=== PATIENT | female | born 1965 | race Caucasian/White ===

== ENCOUNTER → 2016-06-27 | Day surgery (SDC) | payer MEDICAID ==
[~2016-06-27] MED LIST: Lactated Ringers 1,000 ML IV SCH; Midazolam 1 MG/ML 2 ML SDV IV ONE; Midazolam 1 MG/ML 2 ML SDV ONE; fentaNYL 100 MCG/2 ML SDV ONE
[2016-06-27 13:49] VITALS: BP 112/58
--- NOTE | 2016-06-27 20:13 | OR ---
DATE OF OPERATION: 06/27/2016 PREOPERATIVE DIAGNOSIS: RIGHT UPPER QUADRANT PAIN. POSTOPERATIVE DIAGNOSIS: RIGHT UPPER QUADRANT PAIN. SURGEON: Reza Cantor MD PROCEDURE: ESOPHAGOGASTRODUODENOSCOPY WITH BIOPSIES X1, MARSHA. ANESTHESIA: Conscious sedation. COMPLICATIONS: None. SPECIMEN: 1. Duodenal biopsy x2. 2. MARSHA. FINDINGS: 1. Full-length EGD. 2. Duodenitis, duodenal bulb. 3. Small hiatal hernia with spontaneous GERD. RECOMMENDATIONS: Medical follow up. The patient will be placed on appropriate therapy. INDICATIONS: The patient has been having some persistent right upper quadrant pain. She does have some chronic reflux as well. We elected to proceed with EGD. DESCRIPTION OF PROCEDURE: The patient was prepped and draped, placed in left lateral decubitus position. A lubricated Olympus gastroscope was inserted, advanced the cricopharyngeus area, with patient swallow, intubated in the esophagus. Esophageal lining was benign in its entire course. The Z-line was crisp and sharp at 37.5 to 38 cm. There was a mild sized hiatal hernia present with significant spontaneous reflux but no distal esophagitis, stricturing, ulceration, or Helm's changes. The scope was advanced into the stomach through the pylorus and into the third portion of duodenum. The second and third portion of duodenum looked fine. The duodenal bulb itself had mild to moderate diffuse duodenitis. Two biopsies were taken. The scope was brought back into the stomach and retroflexed. The patient has a very redundant stomach, was hard to keep inflated due to amount of air she was losing orally, and we did not get a great look at the upper fundus and cardia, but no gross abnormalities were seen. Upon straightening, the rest of the fundus and antrum showed no signs of any obvious peptic ulcer disease. A CLOtest was obtained. Air was suctioned. Scope was removed without complication. KISHA/ABEBE /[id number]
== END ==
LOC: CC.SDS 11:36
PROVIDERS: ATTEND Family Medicine
DX: K29.80 Duodenitis without bleeding (principal); K44.9 Diaphragmatic hernia without obstruction or gangrene; K21.9 Gastro-esophageal reflux disease without esophagitis; E66.9 Obesity, unspecified; Z88.8 Allergy status to other drugs, medicaments and biological substances; Z79.899 Other long term (current) drug therapy; Z98.51 Tubal ligation status; Z96.649 Presence of unspecified artificial hip joint
CPT/HCPCS: 43239; 87081; J2250; J3010; J7120

== ENCOUNTER → 2016-09-10 | Day surgery (SDC) | payer MEDICAID ==
[~2016-09-10] MED LIST changes: +Acetaminophen/HYDROcodone 325-5 MG Tab PO PRN; +Bupivacaine 0.25%/EPINEPHrine 1:200,000 10 ML SDV ONE; -Lactated Ringers 1,000 ML IV SCH; +Lidocaine 2% 20 ML MDV ONE; -Midazolam 1 MG/ML 2 ML SDV IV ONE; -Midazolam 1 MG/ML 2 ML SDV ONE; +Morphine 4 MG/ML Syringe IVPUSH PRN; +Sodium Chloride 0.9% 100 ML ONE; +ceFAZolin 1 GM Vial IVPUSH ONE; +ceFAZolin 1 GM Vial ONE; +fentaNYL 100 MCG/2 ML SDV IVPUSH ONE; -fentaNYL 100 MCG/2 ML SDV ONE
[2016-09-10] MEDS: Lactated Ringers 1,000 ML IV SCH ×2 (09:35→13:19)
[2016-09-10 16:52] VITALS: BP 117/82
--- NOTE | 2016-09-11 08:11 | OR ---
DATE OF OPERATION: 09/10/2016 PREOPERATIVE DIAGNOSIS: CHRONIC CHOLECYSTITIS. POSTOPERATIVE DIAGNOSIS: CHRONIC CHOLECYSTITIS. SURGEON: Vamsi Burt MD PROCEDURE: LAPAROSCOPIC CHOLECYSTECTOMY. ANESTHESIA: General. DESCRIPTION OF PROCEDURE: After the patient was anesthetized satisfactorily, the patient's abdomen was prepped with iodoform. The patient was given sterile drapes. Small skin incision was made in the midline. It was carried down through the skin, subcutaneous tissue, down through deep fascia. Deep fascia and peritoneum were opened. An 11 mm blunt trocar was introduced. CO2 gas was insufflated. Under direct camera vision, another 11 mm trocar was introduced into the subxiphoid space and a 5 mm in the right upper quadrant. The patient's gallbladder was chronically inflamed. It was held in position with help of a grasper. Dissection was done and cystic duct, cystic artery were both exposed. Junction of the cystic duct with common bile duct and gallbladder was exposed. Both cystic duct and cystic arteries were clipped and divided then gallbladder was taken off its bed with the help of hook cautery and removed from the peritoneal cavity using Endopouch. Irrigation was done. Hemostasis was satisfactory. Various CO2 gas was desufflated out. Various ports were removed. The fascia was closed with #0 Ethibond running sutures. Skin was closed with 4- 0 Vicryl subcuticular sutures. The patient was given sterile dressings. She tolerated the procedure well and left the operating room in satisfactory condition. MELANIA/ABEBE /[id number]
== END ==
LOC: CC.SDS 08:10
PROVIDERS: ATTEND Surgery
DX: K81.1 Chronic cholecystitis (principal); F41.9 Anxiety disorder, unspecified; K21.9 Gastro-esophageal reflux disease without esophagitis; E66.9 Obesity, unspecified; Z88.8 Allergy status to other drugs, medicaments and biological substances; Z98.890 Other specified postprocedural states; Z98.51 Tubal ligation status; Z79.899 Other long term (current) drug therapy; Z96.649 Presence of unspecified artificial hip joint; Z72.0 Tobacco use; F17.210 Nicotine dependence, cigarettes, uncomplicated; Z77.22 Contact with and (suspected) exposure to environmental tobacco smoke (acute) (chronic); Q44.1 Other congenital malformations of gallbladder
CPT/HCPCS: 47562; A9270; J0690; J2270; J3010; J7050; J7120